=== PATIENT | female | born 1965 | race Caucasian/White ===

== ENCOUNTER 2025-10-01 07:48 | Outpatient (CLI) | payer OTHER ==
[~2025-10-01 07:48] MED LIST: ONDA-101 SL
[2025-10-01 08:15] LABS: Hemoglobin 13.2 g/dL (12.2-16.2)
[2025-10-01 08:17] LABS: Hematocrit 40.7 % (36.0-46.0); Mean Corpuscular Hemoglobin 28.1 pg (28.0-32.0); Mean Corpuscular Volume 86.7 fL (80.0-100.0); Nucleated Red Blood Cells % 0.1 %
[2025-10-01 08:20] LABS: Urine Protein, UAD Negative (Negative)
[2025-10-01 08:35] LABS: Alanine Aminotransferase 33 U/L (7-40); Albumin 4.7 g/dL (3.2-4.8); Alkaline Phosphatase 81 U/L (46-116); BUN/Creatinine Ratio 16.2 (10.0-20.0); Bilirubin, Total 0.4 mg/dL (0.2-1.0); Blood Urea Nitrogen 11 mg/dL (9-23); Calcium 9.8 mg/dL (8.7-10.4); Carbon Dioxide 30 mmol/L (20-31); Cholesterol 145 mg/dL (< 200); Glucose 157 mg/dL (74-106); HDL Cholesterol 44 mg/dL (40-59); Magnesium 1.6 mg/dL (1.6-2.6); Potassium 4.7 mmol/L (3.5-5.1); Sodium 141 mmol/L (136-145); Total Protein 8.0 g/dL (5.7-8.2); Triglycerides 114 mg/dL (< 150)
[2025-10-01 09:15] LABS: Anion Gap 10 (5-15); Chloride 101 mmol/L (98-107)
[2025-10-01 09:19] LABS: Uric Acid 5.1 mg/dL (3.1-7.8)
== END 2025-10-01 17:00 | disposition home or self-care (01) ==
LOC: LAB 07:48
PROVIDERS: ATTEND Internal Medicine
DX: E11.9 Type 2 diabetes mellitus without complications (principal); E78.49 Other hyperlipidemia; E61.2 Magnesium deficiency; E79.0 Hyperuricemia without signs of inflammatory arthritis and tophaceous disease; E55.9 Vitamin D deficiency, unspecified; D51.9 Vitamin B12 deficiency anemia, unspecified; R82.79 Other abnormal findings on microbiological examination of urine; R82.90 Unspecified abnormal findings in urine; R82.998 Other abnormal findings in urine; R94.6 Abnormal results of thyroid function studies; R68.89 Other general symptoms and signs
CPT/HCPCS: 36415; 80053; 80061; 81001; 82306; 82607; 82746; 83036; 83735; 84443; 84480; 84550; 85025; 87086